=== PATIENT | male | born 1990 | race Caucasian/White ===

== ENCOUNTER 2021-05-05 19:21 | Observation (INO) | payer MEDICARE, OTHER ==
[~2021-05-05] VITALS: Ht 180.3 cm; Wt 77.1 kg
[2021-05-05 20:00] LABS: HEMOGLOBIN 16.4 gm/dl (14.0-17.5); RED BLOOD COUNT 5.39 M/UL (4.20-5.50)
[2021-05-05 20:27] LABS: BUN/CREATININE RATIO 9 (0-10)
[2021-05-05] MEDS ORDERED: HUMULIN 70100 UNIT/2 SC (23:02)
[2021-05-05] MEDS ORDERED: LANTUS SOL100 UNIT/1 SC (23:04)
--- NOTE | 2021-05-06 11:04 | NUR ---
PATIENT WENT TO OR FOR LAP APPY, RETURNED TO FLOOR MINIMALLY DROWSY AND IS NOW ALERT AND ORIENTED. PAIN IS WELL-CONTROLLED. WCTM CLOSELY
[2021-05-07] MEDS ORDERED: PERCOCET 5-3251 EACH PO (07:43)
[2021-05-07 08:13] LABS: RED BLOOD COUNT 4.44 M/UL (4.20-5.50); WHITE BLOOD COUNT 14.7 K/UL (4.5-11.0)
[2021-05-07 08:16] LABS: BUN/CREATININE RATIO 13 (0-10)
== END 2021-05-07 11:47 | disposition home or self-care (01) ==
LOC: ER1 19:21 → CDU 21:59 → MED SURG 4 21:59
PROVIDERS: Emergency Medicine; Internal Medicine; ADMIT Surgery
PROC: 0DTJ4ZZ Resection of Appendix, Percutaneous Endoscopic Approach (ICD-10-PCS; principal; 2021-05-06 12:30)
DX: K35.80 Unspecified acute appendicitis (principal); K66.0 Peritoneal adhesions (postprocedural) (postinfection); E10.65 Type 1 diabetes mellitus with hyperglycemia; N17.9 Acute kidney failure, unspecified; F17.210 Nicotine dependence, cigarettes, uncomplicated; Z20.822 Contact with and (suspected) exposure to COVID-19
CPT/HCPCS: 72131; 80048; 80053; 82550; 82553; 82803; 82962; 83036; 83605; 83690; 84484; 85025; 86140; 87040; 93005; 96365; 96375; 96376; 99285; G0378; J1100; J1170; J2250; J2270; J2405; J2543; J2704; J2710; J3010; J7030; J7120; U0002